=== PATIENT | male | born 1940 | race Caucasian/White ===

== ENCOUNTER 2020-06-30 13:20 | Inpatient (IN) ==
[2020-06-30] MEDS ORDERED: DEXAMETHASONE 4 MG/1 ML VIAL IV STA (14:23)
[2020-06-30 15:35] LABS: Albumin 2.4 G/DL (3.4-5.0); Bilirubin,Total 0.7 MG/DL (0.2-1.0); Calcium 7.6 MG/DL (8.5-10.1); Ferritin 1244.6 ng/ml (26-388); Osmolality,Calculated 302.5 MOS/KG (273-304); Total Protein 6.3 G/DL (6.4-8.3)
[2020-06-30 15:38] LABS: Hematocrit 28.3 VOL% (42.0-52.0); Hemoglobin 9.2 GM/DL (14.0-18.0); Immature Granulocytes % 5.9 %; Immature Granulocytes Absolute 0.13 #; Lymphocytes # 0.4 10*3/uL (1.4-4.0); Lymphocytes % 18.5 % (21.2-54.2); Mean Corpuscular HGB Conc 32.5 GM/DL (32-36); Mean Corpuscular Volume 90.7 FL (87-102); Mean Platelet Volume 14.1 FL (9.6-12.0); Monocytes % 2.7 % (1.7-12.7); Neutrophils % 72.9 % (38.7-73.9); Platelet Count 168 T/CUMM (130-400); Red Blood Count 3.12 MC/CUMM (3.8-5.5); Red Cell Distribution Width 15.3 % (9.3-17.3); White Blood Count 2.2 T/CUMM (4-12)
[2020-06-30] MEDS ORDERED: NITROGLYCERIN SL 0.4 MG TABLET SL PRN (16:12)
[2020-06-30] MEDS ORDERED: DEXTROSE 50% 25 GM/50 ML VIAL IV PRN (16:18)
[2020-06-30] MEDS ORDERED: GLUCAGON 1 MG VIAL IM PRN (16:18)
[2020-06-30] MEDS ORDERED: AZTREONAM 2,000 MG in SODIUM CHLORIDE 0.9% 100 ML IV SCH (16:30)
[2020-06-30] MEDS ORDERED: FUROSEMIDE 20 MG/2 ML VIAL IV STA (17:08)
[2020-06-30] MEDS ORDERED: MAGNESIUM SULF RIDER 4 GM in PREMIX 1 EACH IV PRN (17:22)
[2020-06-30] MEDS ORDERED: MAGNESIUM SULF RIDER 2 GM in PREMIX 1 EACH IV PRN (17:22)
[2020-06-30 18:27] LABS: Band Neutrophils 1 % (0-10); Lymphocytes 14 % (20-55); Segmented Neutrophils 84 % (50-85); Total Cells Counted 100
[2020-06-30 18:28] LABS: Hypochromasia 1+
[2020-06-30 18:29] LABS: Macrocytosis Slight
[2020-06-30 18:30] LABS: Burr Cells 1+
[2020-06-30] MEDS ORDERED: SODIUM CHLORIDE 0.9% 100 ML IV ONE (19:19)
[2020-06-30] MEDS: cefTRIAXone 1,000 MG in SYRINGE 1 EACH IV SCH (20:01)
[2020-06-30] MEDS: ENOXAPARIN 40 MG/0.4 ML SYRINGE SUBCUT SCH (20:15)
[2020-06-30] MEDS: SODIUM CHLORIDE 0.45% 1,000 ML IV SCH (21:51)
[2020-06-30] MEDS: AZITHROMYCIN INJ 500 MG in SODIUM CHLORIDE 0.9% 250 ML IV SCH (21:52)
[2020-06-30] MEDS: INSULIN REGULAR 100 UNIT/ML SUBCUT SCH (22:00)
[2020-07-01] MEDS ORDERED: SODIUM CHLORIDE 0.9% 500 ML IV STA (00:55)
[2020-07-01 04:47] LABS: Alanine Aminotransferase 35 U/L (16-61); Albumin 2.5 G/DL (3.4-5.0); Alkaline Phosphatase 92 U/L (45-117); Aspartate Amino Transferase 26 U/L (0-37); Blood Urea Nitrogen 47 MG/DL (7-18); Calcium 8.1 MG/DL (8.5-10.1); Estimated Glom Filtration Rate 32 ML/MIN; Ferritin 1055.6 ng/ml (26-388); Glucose 176 MG/DL (74-106); Osmolality,Calculated 294.4 MOS/KG (273-304)
[2020-07-01 04:53] LABS: Thyroid Stimulating Hormone 0.448 uIU/ml (0.358-3.74)
[2020-07-01 05:03] LABS: INR 1.3; PT Patient Result 13.3 SECS (9.8-11.9)
[2020-07-01] MEDS ORDERED: LORazepam 2 MG/1 ML VIAL IV STA (07:06)
[2020-07-01] MEDS ORDERED: CHOLECALCIFEROL 1,000 UNIT TABLET PO SCH (09:00)
[2020-07-01] MEDS: DEXAMETHASONE 4 MG/1 ML VIAL IV SCH (09:14)
[2020-07-01] MEDS: AMIODARONE 200 MG TABLET PO SCH (09:15)
[2020-07-01] MEDS: ASCORBIC ACID 500 MG TABLET PO SCH (09:15)
[2020-07-01] MEDS: ZINC SULFATE 220 MG CAPSULE PO SCH (09:15)
[2020-07-01] MEDS ORDERED: diphenhydrAMINE 50 MG/1 ML VIAL IV STA (09:28)
[2020-07-01 11:18] LABS: Pt O2 Delivery Device Room Air
[2020-07-01 11:19] LABS: ABG Base Excess -3.9 MMOL/L (-2.5-2.5); ABG HCO3 21.1 MMOL/L (20-26); ABG Oxygen Saturation 97.8 % (95-100); ABG PCO2 28.1 MM HG (35-48); ABG PH 7.444 (7.35-7.45); ABG TCO2 17.7 MMOL/L (23-27)
[2020-07-01] MEDS ORDERED: LORazepam 2 MG/1 ML VIAL IV ONE (13:43)
[2020-07-01] MEDS ORDERED: HALOPERIDOL 5 MG/ML AMP IM ONE (13:46)
[2020-07-01] MEDS: SODIUM CHLORIDE 0.9% 1,000 ML IV SCH (14:35)
[2020-07-01] MEDS: cefTRIAXone 1,000 MG in SYRINGE 1 EACH IV SCH (15:36)
[2020-07-01] MEDS: INSULIN REGULAR 100 UNIT/ML SUBCUT SCH ×4 (16:25→21:11)
[2020-07-01] MEDS ORDERED: ACETAMINOPHEN 500 MG TABLET PO PRN (17:39)
[2020-07-01] MEDS ORDERED: HALOPERIDOL 5 MG TABLET PO SCH (21:00)
[2020-07-01] MEDS ORDERED: MELATONIN 3 MG TABLET PO SCH (21:00)
[2020-07-01] MEDS ORDERED: ATORVASTATIN 10 MG TABLET PO SCH (21:00)
[2020-07-01] MEDS: ENOXAPARIN 40 MG/0.4 ML SYRINGE SUBCUT SCH ×2 (21:04→21:05)
[2020-07-01] MEDS: AZITHROMYCIN INJ 500 MG in SODIUM CHLORIDE 0.9% 250 ML IV SCH (21:05)
[2020-07-01] MEDS: SODIUM CHLORIDE 0.45% 1,000 ML IV SCH (21:29)
[2020-07-02 06:06] LABS: INR 1.4; PT Patient Result 14.3 SECS (9.8-11.9)
[2020-07-02] MEDS: SODIUM CHLORIDE 0.9% 1,000 ML IV SCH (06:14)
[2020-07-02 06:22] LABS: Albumin 2.4 G/DL (3.4-5.0); Bilirubin,Total 0.6 MG/DL (0.2-1.0); Calcium 8.2 MG/DL (8.5-10.1); Ferritin 692.3 ng/ml (26-388); Osmolality,Calculated 297.3 MOS/KG (273-304); Total Protein 6.5 G/DL (6.4-8.3)
[2020-07-02] MEDS: DEXAMETHASONE 4 MG/1 ML VIAL IV SCH (08:46)
[2020-07-02] MEDS: AMIODARONE 200 MG TABLET PO SCH (08:46)
[2020-07-02] MEDS: ENOXAPARIN 40 MG/0.4 ML SYRINGE SUBCUT SCH (08:46)
[2020-07-02] MEDS: ZINC SULFATE 220 MG CAPSULE PO SCH (08:47)
[2020-07-02] MEDS: ASCORBIC ACID 500 MG TABLET PO SCH (08:47)
[2020-07-02 08:52] VITALS: BP 133/55
[2020-07-02] MEDS ORDERED: FUROSEMIDE 20 MG/2 ML VIAL IV ONE (09:00)
[2020-07-02] MEDS ORDERED: CLOPIDOGREL 75 MG TABLET PO SCH ×2 (09:00)
[2020-07-02] MEDS: INSULIN REGULAR 100 UNIT/ML SUBCUT SCH (09:17)
== END 2020-07-02 10:29 | disposition home health service (06) | DRG 177 ==
LOC: N.ED 13:20 → N.EDINP 16:29 → N.2E 07-01 12:41
PROVIDERS: ADMIT Hospitalist; ATTEND Hospitalist